=== PATIENT | female | born 1965 | race Caucasian/White ===

== ENCOUNTER 2016-09-24 18:44 | Emergency (ER) | payer MEDICAID ==
[2016-09-24] MEDS ORDERED: IBUPROFEN 600 MG TABLET PO STA (20:50)
[2016-09-24] MEDS ORDERED: ACETAMINOPHEN 325 MG TABLET PO STA (20:50)
[2016-09-24] MEDS ORDERED: IBUPROFEN 600 MG TABLET PO ONE (20:52)
[2016-09-24] MEDS ORDERED: ACETAMINOPHEN 325 MG TABLET PO ONE (20:52)
[2016-09-24] MEDS ORDERED: AMOXICILLIN 250 MG/5 ML SUSP PO ONE (21:30)
[2016-09-24] MEDS ORDERED: IBUPROFEN 100 MG/5 ML UDC ONE (21:30)
== END 2016-09-24 21:03 | disposition home or self-care (01) ==
DX: S83.422A Sprain of lateral collateral ligament of left knee, initial encounter (principal); W50.0XXA Accidental hit or strike by another person, initial encounter; X50.1XXA Overexertion from prolonged static or awkward postures, initial encounter; Y93.23 Activity, snow (alpine) (downhill) skiing, snowboarding, sledding, tobogganing and snow tubing; Y92.39 Other specified sports and athletic area as the place of occurrence of the external cause
CPT/HCPCS: 73564; 99282; 99283; A9270

== ENCOUNTER 2016-10-05 12:04 | Outpatient (CLI) | payer MEDICAID | END 2016-10-05 12:05 | disposition home or self-care (01) | DX: S82.142A Displaced bicondylar fracture of left tibia, initial encounter for closed fracture (principal); S82.002A Unspecified fracture of left patella, initial encounter for closed fracture; S89.82XA Other specified injuries of left lower leg, initial encounter; S83.282A Other tear of lateral meniscus, current injury, left knee, initial encounter; S83.512A Sprain of anterior cruciate ligament of left knee, initial encounter; M67.864 Other specified disorders of tendon, left knee; M25.462 Effusion, left knee; M71.22 Synovial cyst of popliteal space [Baker], left knee; S70.12XA Contusion of left thigh, initial encounter; R60.0 Localized edema; M23.42 Loose body in knee, left knee; S76.312A Strain of muscle, fascia and tendon of the posterior muscle group at thigh level, left thigh, initial encounter; S86.112A Strain of other muscle(s) and tendon(s) of posterior muscle group at lower leg level, left leg, initial encounter ==

== ENCOUNTER 2016-12-22 08:25 | Outpatient (CLI) | payer MEDICAID ==
--- NOTE | 2016-12-22 10:43 | XRAY Report ---
TWO-VIEW RIGHT SHOULDER: 12/22/2016 CLINICAL INDICATION: Pain. FINDINGS: Oblique and scapular Y views of the right shoulder demonstrate osteoarthritis of the gleno humeral and acromioclavicular joints. There is no evidence of acute fracture or dislocation. No rad iopaque foreign body is seen in the soft tissues. IMPRESSION: OSTEOARTHRITIS OF THE ACROMIOCLAVICULAR AND GLENOHUMERAL JOINTS. JOB #: [id number] EXT JOB #:[id number]
--- NOTE | 2016-12-22 10:45 | XRAY Report ---
THREE-VIEW LUMBAR SPINE: 12/22/2016 CLINICAL INDICATION: Back pain, radiculopathy. FINDINGS: AP, lateral, coned-down views of the lumbar spine demonstrate mild degenerative disc and f acet disease. There is no evidence of compression fracture or subluxation. IMPRESSION: MILD DEGENERATIVE CHANGES. JOB #: [id number] EXT JOB #:[id number]
--- NOTE | 2016-12-22 10:47 | XRAY Report ---
SACRUM AND COCCYX: 12/22/2016 CLINICAL INDICATION: Back pain. FINDINGS: AP, oblique, lateral views of the sacrum and coccyx demonstrate no evidence of fracture. The sacral ala are preserved. Mild degenerative changes are seen in the sacroiliac joints. IMPRESSION: NO EVIDENCE OF SACRAL FRACTURE. MILD DEGENERATIVE CHANGES OF THE SACROILIAC JOINTS. JOB #: [id number] EXT JOB #:[id number]
== END 2016-12-22 08:26 | disposition home or self-care (01) ==
LOC: DI 08:25
PROVIDERS: ATTEND Nurse Practitioner Family
DX: M51.16 Intervertebral disc disorders with radiculopathy, lumbar region (principal); M47.28 Other spondylosis with radiculopathy, sacral and sacrococcygeal region; M19.011 Primary osteoarthritis, right shoulder; M47.896 Other spondylosis, lumbar region
CPT/HCPCS: 72100; 72220

== ENCOUNTER 2017-05-09 07:50 | Outpatient (CLI) | payer MEDICAID ==
[2017-05-09 12:06] LABS: BASOPHILS % (AUTO) 0.9 %; EOSINOPHILS # (AUTO) 0.2 10^3/uL (0.0-0.7); EOSINOPHILS % (AUTO) 3.9 %; HCT - HEMATOCRIT 39.4 % (37.0-47.0); HGB - HEMOGLOBIN 13.3 g/dL (12.0-16.0); LYMPHOCYTES # (AUTO) 1.5 10^3/uL (1.5-3.5); MEAN CORPUSCULAR HEMOGLOBIN 30.1 pg (27.0-31.0); MEAN CORPUSCULAR HGB CONC 33.6 g/dL (32.0-36.0); MEAN CORPUSCULAR VOLUME 89.6 fL (81.0-99.0); MEAN PLATELET VOLUME 8.2 fL (7.9-10.8); MONOCYTES # (AUTO) 0.4 10^3/uL (0.0-1.0); MONOCYTES % (AUTO) 9.3 %; NEUTROPHILS # (AUTO) 2.1 10^3/uL (1.5-6.6); NEUTROPHILS % (AUTO) 49.9 %; RED CELL DISTRIBUTION WIDTH 12.5 % (12.0-15.0); UNCORRECTED WHITE BLOOD COUNT 4.3 x10^3/uL; WHITE BLOOD COUNT 4.3 x10^3/uL (4.8-10.8)
[2017-05-09 12:32] LABS: ALBUMIN/GLOBULIN RATIO 1.6 (1.0-2.2); BILIRUBIN,TOTAL 0.5 mg/dL (0.2-1.0); BUN - BLOOD UREA NITROGEN 20 mg/dL (6-20); CALCIUM 9.3 mg/dL (8.5-10.3); CARBON DIOXIDE - CO2 29 mmol/L (21-32); CHLORIDE 103 mmol/L (101-111); CHOL/HDL RATIO 3.2 (<4.4); CHOLESTEROL 238 mg/dL; CREATININE 0.9 mg/dL (0.4-1.0); GFR - MDRD 65 (>89); GLUCOSE 94 mg/dL (70-100); HDL CHOLESTEROL 75 mg/dL; POTASSIUM 3.9 mmol/L (3.5-5.0); SODIUM 139 mmol/L (135-145); TRIGLYCERIDES 75 mg/dL; VLDL CHOLESTEROL 15 mg/dL
== END 2017-05-09 07:51 | disposition home or self-care (01) ==
LOC: LAB.F 07:50
PROVIDERS: ATTEND Nurse Practitioner Family
DX: R53.83 Other fatigue (principal); Z13.220 Encounter for screening for lipoid disorders
CPT/HCPCS: 36415; 80053; 80061; 84443; 85025

== ENCOUNTER 2017-08-22 09:16 | Outpatient (CLI) | payer MEDICAID ==
[2017-08-22 20:07] LABS: CREATININE 0.8 mg/dL (0.4-1.0)
== END 2017-08-22 09:17 | disposition home or self-care (01) ==
LOC: LAB.F 09:16
PROVIDERS: ATTEND Nurse Practitioner Family
DX: R93.8 Abnormal findings on diagnostic imaging of other specified body structures (principal)
CPT/HCPCS: 36415; 82565

== ENCOUNTER 2017-09-02 07:52 | Outpatient (CLI) | payer MEDICAID ==
[2017-09-02] MEDS ORDERED: GADOBUTROL 7.5 MMOL/7.5 ML VIAL ONE (07:54)
[2017-09-02] MEDS ORDERED: GADOBUTROL 7.5 MMOL/7.5 ML VIAL IVP ONE (08:54)
--- NOTE | 2017-09-02 19:31 | MRI Report ---
EXAM: MRI THORACIC SPINE WITHOUT AND WITH CONTRAST EXAM DATE: 09/02/2017 09:07 AM. 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 Mid t horacic spine pain. COMPARISONS: Thoracic spine MRI without contrast from 07/27/2017. TECHNIQUE: Multiplanar, multisequence T1-weighted and fluid-sensitive sequences of the thoracic spine from C7 to L1 before and after administration of intravenous contrast. Other: None. IV contrast: 7 m L Gadavist. FINDINGS: Spinal Cord: No signal abnormality in the visualized spinal cord. Alignment: No scoliosis or spondylolisthesis. Bone Marrow: There is an approximately 4 x 5 x 4 mm enhancing, T1 isointense and T2 hyperintense lesi on at the right T9 transverse process. There is an 8 mm nonenhancing focus of fat within the left T9 transverse process. No acute fracture. Normal marrow signal. Disk Levels/Facets: C6-C7: Degenerative disk changes. Moderate disk space narrowing. Small disk bulge. Bilateral uncovert ebral joint osteophytes. Mild canal and foraminal stenoses. C7-T1: Unremarkable. T1-T2: Unremarkable. T2-T3: Unremarkable. T3-T4: Mild to moderate facet arthropathy. Mild foraminal stenoses. T4-T5: Mild to moderate facet arthropathy. Mild foraminal stenoses. T5-T6: Mild right facet arthropathy. No stenoses. T6-T7: Mild to moderate left facet arthropathy. Mild to moderate left foraminal stenosis. T7-T8: Mild left facet arthropathy. No stenoses. T8-T9: Mild left facet arthropathy. No stenoses. T9-T10: Mild right facet arthropathy. No stenoses. T10-T11: Mild facet arthropathy. No stenoses. T11-T12: Mild facet arthropathy. Mild foraminal stenoses. T12-L1: Unremarkable. Spinal Canal: No enhancing masses within the spinal canal. No epidural abscess. Musculature: Normal. No edema, enhancement, or fatty atrophy. Other: There is a well-circumscribed, approximately 2.2 x 0.8 x 1 cm nonenhancing T1 hyperintense and T1 hypointense extrapleural mass in the right posteromedial T7-T8 intercostal space. There is a eddie lar-appearing, 1.3 x 0.8 x 0.9 cm nonenhancing mass adjacent to the posteromedial aspect of the right T8-T9 intercostal space and a 2.2 x 0.6 x 0.9 cm nonenhancing mass adjacent to the posteromedial asp ect of the left T8-T9 intercostal space. There is a 1.1 x 0.5 cm similar-appearing nonenhancing mass adjacent to the posteromedial aspect of the left T9-T10 intercostal space. IMPRESSION: 1. Well-circumscribed, nonenhancing, homogeneous, T2 hyperintense and T1 hypointense extrapleural mas ses at the right T7-T8, left and right T8-T9, and left T9-T10 intercostal spaces. Differential would include cysts or cystic, nonenhancing, benign nerve sheath tumors. 2. Multilevel facet arthropathy. Mild foraminal stenoses at T3-T4 and T4-T5. Mild to moderate left fo raminal stenosis at T6-T7. Mild foraminal stenoses at T11-T12. 3. Small disk bulge at C6-C7. Mild canal and foraminal stenoses. [facility] Referring Provider Line: [phone] SITE ID: [id number]
== END 2017-09-02 07:53 | disposition home or self-care (01) ==
LOC: DI 07:52
PROVIDERS: ATTEND Nurse Practitioner Family
DX: M47.894 Other spondylosis, thoracic region (principal); R93.8 Abnormal findings on diagnostic imaging of other specified body structures; M50.323 Other cervical disc degeneration at C6-C7 level
CPT/HCPCS: 72157; A9585

== ENCOUNTER 2018-03-23 08:00 | Outpatient (CLI) | payer MEDICAID | END 2018-03-23 08:01 | disposition home or self-care (01) | LOC: LAB.R 08:00 | PROVIDERS: ATTEND Nurse Practitioner Family | DX: J02.9 Acute pharyngitis, unspecified (principal) | CPT/HCPCS: 87070 ==

== ENCOUNTER 2019-02-11 07:03 | Outpatient (CLI) | payer MEDICAID, OTHER ==
[2019-02-11 10:17] LABS: BASOPHILS # (AUTO) 0.1 10^3/uL (0.0-0.1); BASOPHILS % (AUTO) 1.3 %; EOSINOPHILS # (AUTO) 0.2 10^3/uL (0.0-0.7); EOSINOPHILS % (AUTO) 4.5 %; HGB - HEMOGLOBIN 13.2 g/dL (12.0-16.0); LYMPHOCYTES # (AUTO) 1.7 10^3/uL (1.5-3.5); LYMPHOCYTES % (AUTO) 41.6 %; MEAN CORPUSCULAR HEMOGLOBIN 29.7 pg (27.0-31.0); MEAN CORPUSCULAR HGB CONC 32.8 g/dL (32.0-36.0); MEAN CORPUSCULAR VOLUME 90.6 fL (81.0-99.0); MEAN PLATELET VOLUME 10.2 fL (7.9-10.8); MONOCYTES # (AUTO) 0.4 10^3/uL (0.0-1.0); MONOCYTES % (AUTO) 9.5 %; NEUTROPHILS # (AUTO) 1.7 10^3/uL (1.5-6.6); NEUTROPHILS % (AUTO) 42.6 %; PLT - PLATELET COUNT 239 10^3/uL (130-450); RED BLOOD COUNT 4.45 10^6/uL (4.20-5.40); RED CELL DISTRIBUTION WIDTH 12.1 % (12.0-15.0)
[2019-02-11 10:29] LABS: ALBUMIN 4.2 g/dL (3.2-5.5); ALBUMIN/GLOBULIN RATIO 1.4 (1.0-2.2); ALKALINE PHOSPHATASE 52 IU/L (42-121); ALT ALANINE AMINOTRANSFERASE 20 IU/L (10-60); AST ASPARTATE AMINOTRANSFERASE 18 IU/L (10-42); BILIRUBIN,TOTAL 0.7 mg/dL (0.2-1.0); BUN - BLOOD UREA NITROGEN 18 mg/dL (6-20); CALCIUM 9.3 mg/dL (8.5-10.3); CARBON DIOXIDE - CO2 27 mmol/L (21-32); CHLORIDE 103 mmol/L (101-111); CHOL/HDL RATIO 3.7 (<4.4); CHOLESTEROL 292 mg/dL; CREATININE 0.8 mg/dL (0.4-1.0); GFR - MDRD 74 (>89); GLUCOSE 92 mg/dL (70-100); HDL CHOLESTEROL 80 mg/dL; LDL CHOLESTEROL,CALCULATED 195 mg/dL; LDL/HDL RATIO 2.4 (<4.4); SODIUM 140 mmol/L (135-145); TOTAL PROTEIN 7.2 g/dL (6.7-8.2); VLDL CHOLESTEROL 17 mg/dL
[2019-02-12 13:27] LABS: HEPATITIS C ANTIBODY NON-REACTIVE (NON-REACTIVE)
== END 2019-02-11 07:04 | disposition home or self-care (01) ==
LOC: LAB.S 07:03
PROVIDERS: ATTEND Internal Medicine
DX: Z13.6 Encounter for screening for cardiovascular disorders (principal); Z13.1 Encounter for screening for diabetes mellitus; Z83.49 Family history of other endocrine, nutritional and metabolic diseases; Z80.0 Family history of malignant neoplasm of digestive organs; Z84.89 Family history of other specified conditions; Z11.59 Encounter for screening for other viral diseases
CPT/HCPCS: 36415; 80053; 80061; 83721; 84443; 85025; 86803

== ENCOUNTER 2019-09-13 19:15 | Outpatient (CLI) | payer OTHER | END 2019-09-13 19:16 | disposition EMS.NT | LOC: EMS 19:15 | PROVIDERS: ATTEND Surgery | DX: R06.02 Shortness of breath (principal); R13.10 Dysphagia, unspecified; R07.89 Other chest pain ==

== ENCOUNTER 2022-07-14 09:11 | Emergency (ER) | payer OTHER ==
[2022-07-14 09:25] VITALS: BP 111/58
--- NOTE | 2022-07-14 09:53 | XRAY Report ---
PROCEDURE: Chest 2 View X-Ray INDICATIONS: cough TECHNIQUE: 2 views of the chest were acquired. COMPARISON: None FINDINGS: Surgical changes and devices: None. Lungs and pleura: No pleural effusions or pneumothorax. Lungs are clear. Mediastinum: Mediastinal contours are normal. Heart size is normal. Bones and chest wall: No suspicious bony abnormalities. Soft tissues appear unremarkable. IMPRESSION: Reviewed by: Anna Santamaria MD on 07/14/2022 9:52 AM [facility] Approved by: Anna aSntamaria MD on 07/14/2022 9:52 AM [facility] Station ID: [id number]
[2022-07-14 11:14] LABS: B. PARAPERTUSSIS- RESP PCR PAN NOT DETECTED; B. PERTUSSIS- RESP PCR PANEL NOT DETECTED; C. PNEUMONIAE- RESP PCR PANEL NOT DETECTED; CORONAVIRUS 229E-RESP PCR NOT DETECTED; CORONAVIRUS HKU1-RESP PCR NOT DETECTED; CORONAVIRUS NL63-RESP PCR NOT DETECTED; CORONAVIRUS OC43-RESP PCR NOT DETECTED; HUMAN METAPNEUMOVIRUS NOT DETECTED; INFLUENZA A H3- RESP PCR PANEL DETECTED; INFLUENZA B - RESP PCR PANEL NOT DETECTED; M. PNEUMONIAE- RESP PCR PANEL NOT DETECTED; PARAINFLUENZA VIRUS 1 NOT DETECTED; PARAINFLUENZA VIRUS 2 NOT DETECTED; PARAINFLUENZA VIRUS 3 NOT DETECTED; PARAINFLUENZA VIRUS 4 NOT DETECTED; RHINOVIRUS/ENTEROVIRUS NOT DETECTED; RSV- RESP PCR PANEL NOT DETECTED; SARS-CoV-2 -RESP PCR PANEL NOT DETECTED
--- NOTE | 2022-07-14 11:37 | ED Physician Documentation ---
PD HPI URI - Stated complaint Stated Complaint: SOA/COUGH - Chief complaint Chief Complaint: Resp - History obtained from History obtained from: Patient - Additional information Additional information: Patient is a 57-year-old female presenting for evaluation of a nonproductive cough, congestion and feeling fatigued since Monday.She is unsure of any ill contacts. Her symptoms were not improving prompting her to come to the emergency department for evaluation. She denies feeling headache, difficulty breathing, chest pain, abdominal pain. She has been able to hydrate.Her cough has been keeping her up at night. She has not taken any medications for fever this morning. Review of Systems Constitutional: denies: Fever Nose: reports: Congestion Cardiac: denies: Chest pain / pressure Respiratory: reports: Cough. denies: Dyspnea GI: denies: Abdominal Pain, Nausea, Vomiting : denies: Dysuria Musculoskeletal: denies: Back pain Neurologic: denies: Headache PD PAST MEDICAL HISTORY - Past Medical History Cardiovascular: None Endocrine/Autoimmune: None - Past Surgical History Past Surgical History: Yes /DOG WALKER: section HEENT: Tonsil/Adenoidectomy - Present Medications Home Medications: Ambulatory Orders Medication Instructions Recorded Confirmed Ciprofloxacin [Cipro] 500 mg PO BID #20 tablet 08/27/13 HYDROcod/ACETAM 5/325 [Vicodin 1 - 2 ea PO Q6H PRN #15 tablet 08/27/13 5/325] Ibuprofen [Motrin] 600 mg PO TID #30 tab 09/24/16 guaiFENesin/DEXTROMETHORPHAN 10 ml PO Q6H PRN #120 ml 07/14/22 [Robitussin Dm] - Allergies Allergies/Adverse Reactions: Allergies Allergy/AdvReac Type Severity Reaction Status Date / Time peanut Allergy Anaphylaxis Verified 07/14/22 09:20 Penicillins Allergy anaphylaxis Verified 08/27/13 10:53 - Social History Does the pt smoke?: No Smoking Status: Never smoker Does the pt drink ETOH?: No Does the pt have substance abuse?: No PD ED PE NORMAL - General General: Alert and oriented X 3, No acute distress, Well developed/nourished - HEENT HEENT: Atraumatic, Moist mucous membranes, Pharynx benign (No oral swelling, erythema or exudate) - Neck Neck: Supple, no meningeal sign - Cardiac Cardiac: RRR, No murmur - Respiratory Respiratory: No respiratory distress, Clear bilaterally - Abdomen Abdomen: Soft, Non tender - Derm Derm: Warm and dry - Neuro Neuro: Normal speech Results - Vitals Vitals: Vital Signs - 24 hr 07/14/22 09:21 Temperature 37.1 C Heart Rate 76 Respiratory 19 Rate Blood Pressure 111/58 L O2 Saturation 100 Oxygen O2 Source Room air - Labs Labs: Laboratory Tests 07/14/22 09:25 Nasal Adenovirus (PCR) NOT DETECTED Nasal B. parapertussis DNA (PCR) NOT DETECTED Nasal Coronavir 229E PCR NOT DETECTED Nasal Coronavir HKU1 PCR NOT DETECTED Nasal Coronavir NL63 PCR NOT DETECTED Nasal Coronavir OC43 PCR NOT DETECTED Nasal Enterovir/Rhinovir PCR NOT DETECTED Nasal Influenza A H3 PCR DETECTED A Nasal Influenza B PCR NOT DETECTED Nasal Parainfluen 1 PCR NOT DETECTED Nasal Parainfluen 2 PCR NOT DETECTED Nasal Parainfluen 3 PCR NOT DETECTED Nasal Parainfluen 4 PCR NOT DETECTED Nasal RSV (PCR) NOT DETECTED Nasal B.pertussis DNA PCR NOT DETECTED Nasal C.pneumoniae (PCR) NOT DETECTED Lyndon Human Metapneumo PCR NOT DETECTED Nasal M.pneumoniae (PCR) NOT DETECTED Nasal SARS-CoV-2 (PCR) NOT DETECTED PD MEDICAL DECISION MAKING - ED course Complexity details: reviewed results, re-evaluated patient ED course: Patient presenting for evaluation of URI symptoms for 4 days. She is well- appearing, stable vital signs with clear lung sounds and nonlabored breathing. Her chest x-ray is clear. Her respiratory panel is positive for influenza A. She is outside of the recommended treatment window for Tamiflu. Discussed continued supportive care as well as concerning symptoms to return for. Departure - Departure Disposition: 01 Home, Self Care Clinical Impression: Influenza A Condition: Stable Instructions: ED Flu Prescriptions: guaiFENesin/DEXTROMETHORPHAN [Robitussin Dm] 10 ml PO Q6H PRN #120 ml PRN Reason: Cough Comments: You have tested positive for influenza A. Your chest x-ray is clear and there are no signs of pneumonia. Please continue with fluids/hydration, plenty of rest, and acetaminophen or motrin as needed for fevers. I have sent a prescription for cough medication to the [facility] pharmacy. Please return to the ER with worsening symptoms such as labored breathing. Discharge Date/Time: 07/14/22 11:48
== END 2022-07-14 11:48 | disposition home or self-care (01) ==
LOC: ED 09:11
DX: J10.1 Influenza due to other identified influenza virus with other respiratory manifestations (principal); Z20.822 Contact with and (suspected) exposure to COVID-19
CPT/HCPCS: 87633; 99282; 99284

== ENCOUNTER 2024-02-28 08:08 | Outpatient (CLI) | payer OTHER ==
--- NOTE | 2024-02-28 10:08 | DEXA Report ---
PROCEDURE: Dexa Spine and/or Hip INDICATIONS: SCREENING FOR OSTEOPOROSIS TECHNIQUE: Dual energy x-ray absorptiometry (DXA) was performed on a [employer]. Regions measur ed are the AP Spine, femoral neck, and if needed forearm. COMPARISON: None FINDINGS: Lumbar Spine: Bone Mineral Density: 0.994 g/cm/cm,T score: -1.5. Left Femoral Neck: Bone Mineral Density: 1.069 g/cm/cm, T score: 0.2. Left Hip: Bone Mineral Density: 1.056 g/cm/cm,T score: 24. (T score greater or equal to -1.0: NORMAL) (T score from -1.1 to -2.4: OSTEOPENIA) (T score less than or equal to -2.5 to: OSTEOPOROSIS) Impression: By WHO criteria, this patient has low bone density (osteopenia). Patients with diagnosis of osteoporosis or osteopenia should have regular bone mineral density assess ment. For those eligible for Medicare, routine testing is allowed once every 2 years. Testing frequ ency can be increased for patients who have rapidly progressing disease or for those who are receivin g medical therapy to restore bone mass. Reviewed by: Damian Romero MD on 02/28/2024 9:07 AM [facility] Approved by: Damian Romero MD on 02/28/2024 9:07 AM [facility] Station ID: [id number]
== END 2024-02-28 08:09 | disposition home or self-care (01) ==
LOC: DI 08:08
PROVIDERS: ATTEND Internal Medicine
DX: M85.88 Other specified disorders of bone density and structure, other site (principal)